=== PATIENT | male | born 1970 | race Caucasian/White ===

== ENCOUNTER 2016-07-21 21:34 | Emergency (ER) | payer OTHER ==
[~2016-07-21] VITALS: Ht 177.8 cm; Wt 82.6 kg
[~2016-07-21 21:34] MED LIST: ADDERALL XR 3030 MG PO; ALLOPURINOL300 MG PO; CREON 241 CAPSULE PO; FLEXERIL10 MG PO; GABAPENTIN100 MG PO; GABAPENTIN600 MG PO; LEVOTHYROXINE25 MCG PO; LOSARTAN POTASS50 MG PO; LYRICA75 MG PO; MOTRIN600 MG PO; NAPROSYN500 MG PO; NOHOMEMEDS; OXYCODONE HCL5 MG PO
[2016-07-21 22:05] LABS: HEMATOCRIT 43.2 % (38.0-50.0); MCH 29.1 PG (29.0-34.0); MCV 85.5 FL (86-99); PLATELET COUNT 280 K/uL (156-360); RBC DIS.WIDTH-CV 11.9 % (11.8-14.6); RBC DIS.WIDTH-SD 37.3 % (39-53); RED BLOOD COUNT 5.05 M/uL (4.00-5.50); WHITE BLOOD COUNT 13.5 K/uL (4.1-10.2)
[2016-07-21 22:17] LABS: CHLORIDE 100 mEq/L (99-109); POTASSIUM 3.5 mEq/L (3.7-5.4); SODIUM 139 mEq/L (136-147)
[2016-07-21 22:19] LABS: GLUCOSE 127 mg/dL (70-99)
[2016-07-21 22:21] LABS: ANION GAP 11 MEQ/L (2-14); TOTAL BILIRUBIN 0.4 mg/dL (0.0-1.0)
[2016-07-21 22:23] LABS: ALKALINE PHOSPHATASE 64 IU/L (3-129); GFR ESTIMATE (CALCULATED) > 59 mL/min/
[2016-07-21 22:24] LABS: UREA NITROGEN (BUN) 13 mg/dL (9-23)
[2016-07-21 22:26] LABS: LIPASE 12 U/L (1.0-51.0)
[2016-07-22 00:40] LABS: ADD MIUA? YES; BILIRUBIN NEGATIVE; BLOOD MODERATE; COLOR STRAW ((YELLOW)); GLUCOSE (STRIP) NEGATIVE; KETONES NEGATIVE; LEUKOCYTES NEGATIVE; NITRITE NEGATIVE; PROTEIN (STRIP) NEGATIVE; SPECIFIC GRAVITY 1.008 (1.000-1.030); UROBILINOGEN 0.2 MG/DL (0.2-1.0)
[2016-07-22 00:43] LABS: BACTERIA NONE SEEN /HPF; EPITHELIAL CELLS NONE SEEN /HPF; MUCUS TRACE /LPF; RED BLOOD CELLS 30-40 /HPF (0-5); UCUL ADDED? NO; WHITE BLOOD CELLS 0-5 /HPF (0-5)
[2016-07-22] MEDS ORDERED: MOTRIN800 MG PO (00:59)
[2016-07-22] MEDS ORDERED: FLOMAX0.4 MG PO (00:59)
[2016-07-22] MEDS ORDERED: ZOFRAN ODT4 MG PO (00:59)
[2016-07-22 01:37] VITALS: BP 157/104
[2016-07-23] MEDS ORDERED: FLOMAX0.4 MG PO (19:08)
[2016-07-23] MEDS ORDERED: ULTRAM50 MG PO (19:08)
[2016-07-23] MEDS ORDERED: ZOFRAN ODT4 MG PO (19:08)
== END 2016-07-22 01:38 | disposition home or self-care (01) ==
LOC: EME 21:34
DX: N20.1 Calculus of ureter (principal); R31.9 Hematuria, unspecified; K21.9 Gastro-esophageal reflux disease without esophagitis; G89.29 Other chronic pain
CPT/HCPCS: 74177; 80053; 81003; 83690; 85027; 99281; 99285; J1885; J2405; J3010; J7030

== ENCOUNTER 2016-07-23 16:16 | Emergency (ER) | payer OTHER ==
[~2016-07-23] VITALS: Ht 175.3 cm; Wt 87.3 kg
[~2016-07-23 16:16] MED LIST changes: +FLOMAX0.4 MG PO; +MOTRIN800 MG PO; +ZOFRAN ODT4 MG PO
[2016-07-23 17:55] LABS: CHLORIDE 106 mEq/L (99-109); POTASSIUM 3.7 mEq/L (3.7-5.4); SODIUM 141 mEq/L (136-147)
[2016-07-23 17:57] LABS: GLUCOSE 101 mg/dL (70-99)
[2016-07-23 17:58] LABS: ANION GAP 7 MEQ/L (2-14)
[2016-07-23 18:00] LABS: GFR ESTIMATE (CALCULATED) 53 mL/min/; HEMATOCRIT 36.2 % (38.0-50.0); MCH 29.6 PG (29.0-34.0); MEAN PLAT.VOLUME 8.9 uM^3 (9.0-12.4); PLATELET COUNT 224 K/uL (156-360); RBC DIS.WIDTH-CV 12.2 % (11.8-14.6); RBC DIS.WIDTH-SD 39.2 % (39-53); RED BLOOD COUNT 4.16 M/uL (4.00-5.50); WHITE BLOOD COUNT 11.8 K/uL (4.1-10.2)
[2016-07-23 18:01] LABS: UREA NITROGEN (BUN) 10 mg/dL (9-23)
[2016-07-23 18:02] LABS: ADD MIUA? NO; BILIRUBIN NEGATIVE; BLOOD NEGATIVE; COLOR STRAW ((YELLOW)); GLUCOSE (STRIP) NEGATIVE; KETONES NEGATIVE; LEUKOCYTES NEGATIVE; NITRITE NEGATIVE; PROTEIN (STRIP) NEGATIVE; SPECIFIC GRAVITY 1.013 (1.000-1.030); UROBILINOGEN 0.2 MG/DL (0.2-1.0)
[2016-07-23] MEDS ORDERED: ZOFRAN ODT4 MG PO (19:08)
[2016-07-23] MEDS ORDERED: FLOMAX0.4 MG PO (19:08)
[2016-07-23] MEDS ORDERED: ULTRAM50 MG PO (19:08)
[2016-07-23 19:18] VITALS: BP 128/89
== END 2016-07-23 19:19 | disposition home or self-care (01) ==
LOC: EME 16:16
PROVIDERS: Physician Assistant
DX: N20.0 Calculus of kidney (principal); N50.812 Left testicular pain; K21.9 Gastro-esophageal reflux disease without esophagitis; Z87.442 Personal history of urinary calculi
CPT/HCPCS: 76870; 80048; 81003; 85027; 99281; 99285; J1885; J3010

== ENCOUNTER 2016-07-26 15:13 | Inpatient (IN) | payer OTHER ==
[2016-07-25 23:35] VITALS: BP 130/85
[~2016-07-26] VITALS: Ht 167.6 cm; Wt 80.0 kg
[~2016-07-26 15:13] MED LIST changes: +ULTRAM50 MG PO
[2016-07-26 16:02] LABS: HEMATOCRIT 38.4 % (38.0-50.0); MCH 28.6 PG (29.0-34.0); MCHC 34.1 G/DL (30.0-36.0); MCV 83.8 FL (86-99); MEAN PLAT.VOLUME 9.2 uM^3 (9.0-12.4); PLATELET COUNT 286 K/uL (156-360); RBC DIS.WIDTH-CV 11.6 % (11.8-14.6); RBC DIS.WIDTH-SD 35.6 % (39-53); RED BLOOD COUNT 4.58 M/uL (4.00-5.50); WHITE BLOOD COUNT 11.8 K/uL (4.1-10.2)
[2016-07-26 16:11] LABS: CHLORIDE 102 mEq/L (99-109); POTASSIUM 3.9 mEq/L (3.7-5.4); SODIUM 140 mEq/L (136-147)
[2016-07-26 16:12] LABS: GLUCOSE 108 mg/dL (70-99)
[2016-07-26 16:14] LABS: ANION GAP 10 MEQ/L (2-14)
[2016-07-26 16:16] LABS: GFR ESTIMATE (CALCULATED) 53 mL/min/
[2016-07-26 16:17] LABS: UREA NITROGEN (BUN) 15 mg/dL (9-23)
[2016-07-26 18:33] LABS: ADD MIUA? YES; BILIRUBIN NEGATIVE; BLOOD MODERATE; COLOR YELLOW ((YELLOW)); GLUCOSE (STRIP) NEGATIVE; KETONES 5; LEUKOCYTES NEGATIVE; NITRITE NEGATIVE; PROTEIN (STRIP) NEGATIVE; UROBILINOGEN 0.2 MG/DL (0.2-1.0)
[2016-07-26 18:43] LABS: AMPHETAMINE NEGATIVE (500 ng/mL); BARBITURATES NEGATIVE (200 ng/mL); BENZODIAZEPINES NEGATIVE (150 ng/mL); COCAINE NEGATIVE (150 ng/mL); INTERNAL CONTROLS VALID? YES; METHADONE NEGATIVE (200 ng/mL); METHAMPHETAMINE NEGATIVE (500 ng/mL); OPIATES (MORPHINE) NEGATIVE (100 ng/mL); OXYCODONE PRESUMPTIVE POSITIVE (100 ng/mL); PHENCYCLIDINE NEGATIVE (25 ng/mL); PROPOXYPHENE NEGATIVE (300 ng/mL); THC CANNABINOIDS NEGATIVE (50 ng/mL); TRICYCLIC ANTIDEPRESSANTS NEGATIVE (300 ng/mL)
[2016-07-26 19:06] LABS: BACTERIA RARE /HPF; EPITHELIAL CELLS NONE SEEN /HPF; MUCUS NONE SEEN /LPF; RED BLOOD CELLS 20-30 /HPF (0-5); UCUL ADDED? NO; WHITE BLOOD CELLS 0-5 /HPF (0-5)
[2016-07-26 20:50] LABS: SERUM ETHYL ALCOHOL < 10 mg/dL
[2016-07-26 22:56] VITALS: BP 130/85
[2016-07-27 04:41] VITALS: BP 117/84
[2016-07-27 07:25] LABS: ANION GAP 8 MEQ/L (2-14); CHLORIDE 104 MEQ/L (99-109); GFR ESTIMATE (CALCULATED) > 59 mL/min/; GLUCOSE 81 mg/dL (70-99); POTASSIUM 3.7 MEQ/L (3.7-5.4); SAMPLE HEMOLYSIS CHECK 0; SAMPLE ICTERIC CHECK 0; SAMPLE LIPEMIA CHECK 0; SODIUM 141 MEQ/L (136-147); UREA NITROGEN (BUN) 17 mg/dL (9-23)
[2016-07-27 08:00] VITALS: BP 152/98
[2016-07-27 11:00] VITALS: BP 134/92
[2016-07-27 15:39] VITALS: BP 117/70
[2016-07-27 19:57] VITALS: BP 136/80
[2016-07-27 23:33] VITALS: BP 161/97
[2016-07-28 03:47] VITALS: BP 137/88
[2016-07-28 07:07] LABS: BASOPHIL COUNT 0.1 K/uL (0-0.1); EOSINOPHIL (%) 7.6 % (0-5); EOSINOPHIL COUNT 0.6 K/uL (0-0.3); IMMATURE GRANULOCYTE (%) 0.3 % (0.0-0.7); INSTRUMENT ABS NEUTROPHIL CT 4.2 K/uL; LYMPHOCYTE COUNT 1.9 K/uL (1.0-2.8); MCH 28.6 PG (29.0-34.0); MCHC 33.3 G/DL (30.0-36.0); MCV 85.9 FL (86-99); MEAN PLAT.VOLUME 9.1 uM^3 (9.0-12.4); MONOCYTE COUNT 0.8 K/uL (0-0.8); NEUTROPHIL (%) 55.5 % (45-76); NEUTROPHIL COUNT 4.2 K/uL (1.8-6.4); PLATELET COUNT 300 K/uL (156-360); RBC DIS.WIDTH-CV 11.9 % (11.8-14.6); RBC DIS.WIDTH-SD 37.5 % (39-53); RED BLOOD COUNT 3.84 M/uL (4.00-5.50)
[2016-07-28 07:08] LABS: WHITE BLOOD COUNT 7.5 K/uL (4.1-10.2)
[2016-07-28 07:15] VITALS: BP 169/90
[2016-07-28 07:21] LABS: ALKALINE PHOSPHATASE 43 IU/L (3-129); ANION GAP 9 MEQ/L (2-14); CHLORIDE 107 MEQ/L (99-109); GFR ESTIMATE (CALCULATED) > 59 mL/min/; GLUCOSE 91 mg/dL (70-99); MAGNESIUM 1.8 mg/dl (1.3-2.7); POTASSIUM 3.9 MEQ/L (3.7-5.4); SAMPLE HEMOLYSIS CHECK 0; SAMPLE ICTERIC CHECK 0; SAMPLE LIPEMIA CHECK 0; SODIUM 141 MEQ/L (136-147); TOTAL BILIRUBIN 0.3 MG/DL (0.0-1.0); UREA NITROGEN (BUN) 21 mg/dL (9-23)
[2016-07-28 11:10] VITALS: BP 167/60
[2016-07-28 18:07] VITALS: BP 141/80
[2016-07-28 20:07] VITALS: BP 139/92
[2016-07-28] MEDS ORDERED: LEVO-T25 MCG PO (20:35)
[2016-07-28] MEDS ORDERED: COZAAR50 MG PO (20:35)
[2016-07-28] MEDS ORDERED: ZYLOPRIM300 MG PO (20:36)
[2016-07-28] MEDS ORDERED: DESYREL100 MG PO (20:36)
[2016-07-28] MEDS ORDERED: OXYCODONE HCL10 MG PO (20:37)
[2016-07-28] MEDS ORDERED: CIPRO500 MG PO (20:38)
[2016-07-28] MEDS ORDERED: ADDERALL XR 3030 MG PO (20:38)
[2016-07-28 23:35] VITALS: BP 130/85
[2016-07-29 04:16] VITALS: BP 137/87
[2016-07-29 06:48] LABS: BASOPHIL COUNT 0.1 K/uL (0-0.1); EOSINOPHIL (%) 10.5 % (0-5); EOSINOPHIL COUNT 0.7 K/uL (0-0.3); IMMATURE GRANULOCYTE (%) 0.5 % (0.0-0.7); INSTRUMENT ABS NEUTROPHIL CT 2.7 K/uL; LYMPHOCYTE COUNT 2.2 K/uL (1.0-2.8); MCH 29.3 PG (29.0-34.0); MCHC 34.2 G/DL (30.0-36.0); MCV 85.5 FL (86-99); MONOCYTE (%) 10.2 % (3-12); MONOCYTE COUNT 0.6 K/uL (0-0.8); NEUTROPHIL (%) 42.7 % (45-76); NEUTROPHIL COUNT 2.7 K/uL (1.8-6.4); PLATELET COUNT 302 K/uL (156-360); RBC DIS.WIDTH-CV 11.9 % (11.8-14.6); RBC DIS.WIDTH-SD 37.2 % (39-53); RED BLOOD COUNT 3.86 M/uL (4.00-5.50); WHITE BLOOD COUNT 6.3 K/uL (4.1-10.2)
[2016-07-29 07:15] LABS: ANION GAP 8 MEQ/L (2-14); CHLORIDE 104 MEQ/L (99-109); GFR ESTIMATE (CALCULATED) > 59 mL/min/; GLUCOSE 97 mg/dL (70-99); MAGNESIUM 1.7 mg/dl (1.3-2.7); POTASSIUM 3.9 MEQ/L (3.7-5.4); SAMPLE HEMOLYSIS CHECK 0; SAMPLE ICTERIC CHECK 0; SAMPLE LIPEMIA CHECK 0; SODIUM 140 MEQ/L (136-147); UREA NITROGEN (BUN) 18 mg/dL (9-23)
[2016-07-29 08:15] VITALS: BP 138/95
[2016-07-29] MEDS ORDERED: TAMSULOSIN HCL0.4 MG PO (13:42)
[2016-07-29] MEDS ORDERED: THERAGRAN1 TABLET PO (13:42)
[2016-07-29] MEDS ORDERED: FOLIC ACID1 MG PO (13:42)
[2016-07-29] MEDS ORDERED: Thiamine,Vitamin B1 PO (13:42)
== END 2016-07-29 15:04 | disposition home or self-care (01) | DRG 917 ==
LOC: EME → EDBD 15:13 → EDOF 19:35 → 4EAST 20:45 → EDOF 20:45 → 4EAST 22:35
PROVIDERS: Emergency Medicine; Internal Medicine; Physician Assistant Medical
PROC: 0TF7XZZ Fragmentation in Left Ureter, External Approach (ICD-10-PCS; principal; 2016-07-29)
DX: T40.2X1A Poisoning by other opioids, accidental (unintentional), initial encounter (principal); G93.40 Encephalopathy, unspecified; N17.9 Acute kidney failure, unspecified; F10.231 Alcohol dependence with withdrawal delirium; N20.2 Calculus of kidney with calculus of ureter; I10 Essential (primary) hypertension; K59.00 Constipation, unspecified; E03.9 Hypothyroidism, unspecified; K21.9 Gastro-esophageal reflux disease without esophagitis
CPT/HCPCS: 70450; 71020; 74000; 80048; 80053; 81003; 83735; 84443; 85025; 85027; 93005; 99281; 99285; G0480; J1644; J1885; J2060; J2250; J3010; J3411; J7030

== ENCOUNTER 2016-11-02 23:54 | Emergency (ER) | payer OTHER ==
[~2016-11-02] VITALS: Ht 172.7 cm; Wt 81.8 kg
[~2016-11-02 23:54] MED LIST changes: +CIPRO500 MG PO; +COZAAR50 MG PO; +DESYREL100 MG PO; +FOLIC ACID1 MG PO; +LEVO-T25 MCG PO; +OXYCODONE HCL10 MG PO; +TAMSULOSIN HCL0.4 MG PO; +THERAGRAN1 TABLET PO; +Thiamine,Vitamin B1 PO; +ZYLOPRIM300 MG PO
[2016-11-03] MEDS ORDERED: KEFLEX500 MG PO (01:56)
[2016-11-03 02:09] VITALS: BP 119/82
== END 2016-11-03 02:17 | disposition home or self-care (01) ==
LOC: EXP 23:54 → EME 23:54 → EXP 11-03 02:17
DX: S41.121A Laceration with foreign body of right upper arm, initial encounter (principal); S51.021A Laceration with foreign body of right elbow, initial encounter; V89.0XXA Person injured in unspecified motor-vehicle accident, nontraffic, initial encounter; Y92.39 Other specified sports and athletic area as the place of occurrence of the external cause; I10 Essential (primary) hypertension; K21.9 Gastro-esophageal reflux disease without esophagitis; Z87.442 Personal history of urinary calculi
CPT/HCPCS: 73060; 99281; 99284; S0020